=== PATIENT | female | born 2000 | race Two or more races ===

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

== ENCOUNTER 2019-04-24 03:14 | Outpatient (CLI) | payer OTHER ==
[~2019-04-24] VITALS: Ht 170.2 cm; Wt 60.5 kg
[2019-04-24 04:04] VITALS: BP 118/80
--- NOTE | 2019-04-24 11:49 | HPE ---
DATE OF ADMISSION: 04/24/2019 HISTORY: This is a 18-year-old 2, para 0, abortia 1, last menstrual period (LMP) 08/15/2018, estimated date of confinement (EDC) 06/02/2019, at 34 and 4 weeks of gestation, lost her mucus plug. RISK FACTORS: She has anemia and a body mass index (BMI) of 18. PAST HISTORY: In 2011, had a gestational sac with spontaneous . No dilation and curettage (D C). LABORATORIES: A positive, HIV negative, hepatitis negative, rapid plasma reagin (RPR) negative, rubella immune. Varicella immune. Urine negative. Gonorrhea and chlamydia negative. One hour glucose was 121. On examination, no distress. Symphysis fundus height is 34, vertex occiput anterior (OA), category one strip. No contractions. No decelerations. Accelerations are noted. The cervix is fingertip posterior -3 vertex, not well applied. She has no vaginal bleeding or loss and there is nothing on the glove. Blood pressure 118/80, respirations 18, pulse 86, temperature 98.1. Urine is 10/10, pH 6 and negative. In summary, we have a 34+ weeks of gestation, lost her mucus plug. Maintain appointment 05/06/2019. Discharged with instructions regarding kick chart, premature rupture of membranes, bleeding and contractions. All questions were answered. A 20 minute discussion. The patient discharged undelivered to follow up with her appointment.
== END 2019-04-24 04:30 | disposition home or self-care (01) ==
LOC: M LDO 03:14
PROVIDERS: ATTEND Obstetrics & Gynecology
DX: O26.893 Other specified pregnancy related conditions, third trimester (principal); Z3A.34 34 weeks gestation of pregnancy
CPT/HCPCS: 59025; G0378; G0463

== ENCOUNTER 2019-05-17 13:22 | Outpatient (CLI) | payer OTHER ==
[~2019-05-17] VITALS: Ht 170.2 cm; Wt 62.8 kg
[2019-05-17 13:48] VITALS: BP 135/77
[2019-05-17] MEDS ORDERED: IRON325T9 PO (13:52)
[2019-05-17] MEDS ORDERED: VITA250T4 PO (13:52)
[2019-05-17] MEDS ORDERED: PREN1CHW6 PO (13:52)
--- NOTE | 2019-05-17 15:58 | IPNPDOC ---
Text Note Date of Service The patient was seen on 05/17/19. NOTE S: Candie is a 18yo at, 37+5wks, EDC [id number] by 1st trimester US. She presents to LND with c/o ROM yesterday at 0730; she states her fluid was mucous at first, and now has become watery. She does report intercourse two nights ago. She reports +FM, denies VB/CTX. Her is complicated by anemia; she reports taking iron/vitamin C as prescribed. GBS Negative O: VSS, afebrile FHR 130s, moderate variability, + accels, no decels CTX: none VE: 2.5/50/-3, posterior SSE: No pooling No ferning on slide SABRINA: 13.74 (4 quadrant) A: Primip, intact membranes, not in labor, SABRINA WNL, Category I FHT, reactive and reassuring P: Discharged home with ROM and Labor precautions. f/u Thursday, [id number], in clinic for routine SERENA or sooner PRN Vital Signs Date Time Temp Pulse Resp B/P (MAP) Pulse Ox O2 Delivery O2 Flow Rate FiO2 05/17/19 13:48 97.4 87 18 135/77 (96) VS,Fishbone, I+O VS, Fishbone, I+O Vital Signs Date Time Temp Pulse Resp B/P (MAP) Pulse Ox O2 Delivery O2 Flow Rate FiO2 05/17/19 13:48 97.4 87 18 135/77 (96) TIANNA HENRIQUEZ CNM May 17, 2019 15:58
== END 2019-05-17 14:37 | disposition home or self-care (01) ==
LOC: M LDO 13:22
PROVIDERS: ATTEND Registered Nurse Maternal Newborn
DX: O26.893 Other specified pregnancy related conditions, third trimester (principal); N89.8 Other specified noninflammatory disorders of vagina; Z3A.37 37 weeks gestation of pregnancy
CPT/HCPCS: 59025; 76815; G0378; G0463

== ENCOUNTER 2019-05-18 00:49 | Inpatient (IN) | payer OTHER ==
[2019-05-18] VITALS (8 sets, daily range): BP systolic 112–139; BP diastolic 66–87
[~2019-05-18] VITALS: Ht 170.2 cm; Wt 63.6 kg
[~2019-05-18 00:49] MED LIST: IRON325T9 PO; PREN1CHW6 PO; VITA250T4 PO
[2019-05-18] MEDS ORDERED: LACTATED RINGER'S 1000 ML IV STA (01:55)
[2019-05-18] MEDS ORDERED: LR 1,000 ML IV SCH (01:55)
[2019-05-18] MEDS ORDERED: PROMETHAZINE INJ 25 MG/ML VIAL (J2550) IV ONE (02:00)
[2019-05-18] MEDS ORDERED: BUTORPHANOL 2 MG/ML INJ (J0595) IV PRN (02:00)
--- NOTE | 2019-05-18 02:09 | HPEPDOC ---
Obstetrical History & Physical General Date of Admission May 18, 2019 at 01:55 History of Present Illness Candie is a 18yo with SIUP at 37w6d by 7wk u/s presenting tonight with heavy vaginal bleeding after intercourse. states it "looked like a massacre". Patient states it was 2x heavier than normal heavy period bleeding. She was seen yesterday for labor check and was 2cm dilated. She is having ctx and they are mild/moderate. Feels good movement. No loss of fluid other than bleeding. No f/c/n/v/cough/SOB. Chief Complaint: Contractions, term, Vaginal Bleeding Information Provided By: Patient Care Care: Good Care Dating Final EDC: Jun 02, 2019 Final EDC by: 1st trimester (US) Antepartum Course Diagnos(e)s Starting BMI 18, anemia on iron/vit C Height (inches): 67 Pre- weight (lbs.): 115 Admission Weight (lbs.): 137 Change in Weight (lbs.): 22 Past Medical History Past Obstetrical History : Past Obstetrical History: Primgravida (early sab in 2017 with no interventi ons) V[employer]ER History: No pertinent history Past Medical History Medical History benign Surgical History: Other (oral surgery) Family History Significant Family History: No pertinent family hx Social History Marital Status: Family situation: Spouse/partner home Psychosocial History: No pertinent psych hx * Smoker: non-smoker Alcohol: Denies Imunizations Tdap status: current Influenza Status: declined Allergies Coded Allergies: No Known Allergies (Unverified , 05/18/19) Medications Scheduled Ascorbic Acid (Vitamin C) 250 Mg Tablet, 250 MG PO TID Ferrous Sulfate (Iron) 325 Mg Tablet, 1 TAB PO TID Vit37/Iron/Folic Acid (Prenata Chewable Tablet) 1 Each Tab.chew, 1 TAB PO DAILY Physical Examination Physical Examination GENERAL: Alert and oriented times three. ABDOMEN: Gravid and non-tender to touch. FETUS: Is vertex (VTX) by sterile vaginal examination (SVE) EXTREMITIES: No edema of BLE First jane-pad saturated with blood, then second was just barely coated with scant blood Vital Signs/I&O Vital Signs Date Time Temp Pulse Resp B/P (MAP) Pulse Ox O2 Delivery O2 Flow Rate FiO2 05/18/19 01:17 97.8 86 129/83 (98) Pertinent Laboratoy Data Blood Type: A+ RBC Antibody Screen: Negative HIV: Negative Hepatitis B: Negative Hepatitis C: Unknown Rapid Plasma Reagin: Nonreactive Rubella: Immune Varicella: Immune Chlamydia/Gonorrhea: Negative Group B Streptococcus: Negative Glucose Tolerance Test: 111 Anatomy Ultrasound Ultrasound Date: Jan 10, 2019 Placenta Location: Posterior Normal Anatomy: Yes Placenta Previa: No Steroid Therapy Steroid Therapy: No Vaginal Examination Dilation: 4 cm Effacement: 80% Station: -2 Cervical Consistency: Soft Cervical Position: Anterior Presentation: Cephalic presentation Assessment Heart Rate (FHR): 130 Variability: Moderate Accelerations: Positive Decelerations: None Tocometer Contractions: Yes Frequency: regular, every 2-5 min. Duration: greater than 60 seconds Strength: palpated as moderate Assessment/Plan Assessment Candie is a 18yo with SIUP at 37w6d by 7wk u/s with vaginal bleeding after intercourse that is likely related to early labor since SCE is 4/80/-2 with regular ctx q2-3min. Cat I FHRT. Bleeding has essentially ceased since presentation. Cephalic by SCE. GBS negative. Vitals wnl, benign exam. PMhx and course significant for: starting BMI 18, anemia on iron/vit C Plan Admit and orient. Counseled and consented Diet: clear liquids Group B Streptococcus (GBS) negative Labs and intravenous (IV) per unit protocol. Discussed since she is not 39wk or >, cannot augment at this point and she must progress on her own. She is understanding. Lactated Ringers (LR): Bolus 500 mL, then at 125 mL/hr. Anticipate normal spontaneous delivery () Candidate for epidural in active labor, stadol/phenergan IV in latent labor MD Yenifer Wesley Katrina D MD May 18, 2019 02:09
[2019-05-18 02:46] LABS: BASO % 0.2 % (0.0-1.0); EOS % 0.3 % (0.0-3.0); HEMATOCRIT 28.3 % (36.0-47.0); HEMOGLOBIN 9.3 g/dl (12.0-15.5); LYMPH # 1.6 10^3/uL (1.5-5.0); LYMPH % 13.9 % (24.0-44.0); MEAN CORPUSCULAR HEMOGLOBIN 27.6 pg (27.0-33.0); MEAN CORPUSCULAR HGB CONC 32.9 g/dl (32.0-36.5); MONO # 0.8 10^3/uL (0.0-0.8); MONO % 6.7 % (0.0-5.0); NEUTROPHILS # 8.8 10^3/uL (1.5-8.5); NEUTROPHILS % 78.3 % (36.0-66.0); PLATELET COUNT, AUTOMATED 227 10^3/uL (150-450); RED BLOOD COUNT 3.37 10^6/uL (4.00-5.40); WHITE BLOOD COUNT 11.3 10^3/uL (4.0-10.0)
[2019-05-18] MEDS ORDERED: OXYTOCIN 30 UNITS IN 0.9% NaCl 500ML IV BAG (J2590) As Ordered ONE (04:26)
--- NOTE | 2019-05-18 05:06 | DNPDOC ---
[facility] Delivery Note Delivery Note DATE OF DELIVERY: 05/18/2019 PREDELIVERY DIAGNOSIS: 37w6d gestation and labor. POST DELIVERY DIAGNOSIS: Delivered. PROCEDURE: Spontaneous vaginal delivery ACOUSTICAL CARPENTER: Dr. Libertad Street MD ANESTHESIA: IV stadol/phenergan ESTIMATED BLOOD LOSS: 300 mL. FINDINGS: 6 pound 5 ounce (2860g) female , Score 9/9 DELIVERY SUMMARY: Candie is a 18yo [id number] s/p uncomplicated at 37w6d on 18 May 2019 at 0438 after presenting in active labor. She was 4cm on admission, received stadol for pain, had SROM with clear fluid, and rapidly progressed to C/C/+2 at which point she began pushing. 's head delivered OA, restituted ANALI. Left anterior shoulder delivered followed by posterior shoulder and corpus. Infant had spontaneous cry, vigorous, apgars 9/9, nose and mouth suctioned with bulb suction. Cord clamped x2 and cut by FOB. With uterine massage and traction on the cord, placenta delivered spontaneously and intact with 3 vessel centrally inserted cord. Bimanual massage performed and IV pitocin given per protocol, fundus then firm at u-2cm and minimal bleeding noted. Inspection of perineum and vagina revealed small left labial laceration repaired with a single figure of 8 using 4-0 vicryl suture with excellent reapproximation and complete hemostasis. All counts correct x2. Mom and infant doing well when I left the room. MD Yenifer Wesley Katrina D MD May 18, 2019 05:06
[2019-05-18] MEDS ORDERED: OXYTOCIN DRIP 30 UNITS in IV 1 EA IV SCH (05:07)
[2019-05-18] MEDS ORDERED: RHOGAM 300 MCG (1500 IU) INJ (J2790) IM SCH (05:15)
[2019-05-18] MEDS ORDERED: DOCUSATE SODIUM 100 MG CAP PO PRN (05:15)
[2019-05-18] MEDS ORDERED: MEASLES,MUMPS,RUBELLA VACCINE INJ (MMR-II) (90707) SC SCH (05:15)
[2019-05-18] MEDS ORDERED: ACETAMINOPHEN 500 MG TAB PO PRN (05:15)
[2019-05-18] MEDS ORDERED: ACETAMINOPHEN TAB 650MG DOSE (2X325MG) PO PRN (05:15)
[2019-05-18] MEDS ORDERED: DIBUCAINE 1% OINTMENT 30GM TOP PRN (05:15)
[2019-05-18] MEDS: PRENATAL VITAMINS CHEWABLE TABLET PO SCH (08:46)
[2019-05-18] MEDS ORDERED: LIDOCAINE 1% MDV 20ML VIAL As Ordered ONE (23:52)
[2019-05-19 06:00] VITALS: BP 113/68
--- NOTE | 2019-05-19 08:39 | IPNPDOC ---
Progress Note Date of Service: May 19, 2019 Day#: 1 Progress Note SUBJECT: Patient is a 18 yo s/p , PPD #1. Today without concerns. She has been ambulating, voiding spontaneously without issue and tolerating regular diet. Breast feeding without issue. Reports lochia is light. plans on ocp for contraceptives. OBJECTIVE: VITAL SIGNS: Within normal limits, afebrile. Alert and oriented times three. Abdomen: Fundus firm at U-2. Soft, NTTP. LE: no edema/erythema/tenderness A/P patient is ppd #1, doing well. encourage BF. contraceptive counseling. norqd prescription placed at pharmacy. routine ppc. d/c today. Le, DO VS, I&O, 24H, Fishbone Vital Signs/I&O Vital Signs Date Time Temp Pulse Resp B/P (MAP) Pulse Ox O2 Delivery O2 Flow Rate FiO2 05/19/19 06:00 97.8 78 18 113/68 (83) 97 Room Air I&O- Last 24 Hours up to 6 AM 05/19/19 05:59 Output Total 500 ml Balance -500 ml ZAYNAB CARCAMO DO May 19, 2019 08:38
[2019-05-19] MEDS: PRENATAL VITAMINS CHEWABLE TABLET PO SCH (08:43)
[2019-05-19 18:17] VITALS: BP 114/61
[2019-05-20 06:18] VITALS: BP 116/67
--- NOTE | 2019-05-20 07:29 | IPNPDOC ---
Progress Note Date of Service: May 20, 2019 Day#: 2 Progress Note PPD 2 SUBJECT: Candie is a 18yo [id number] s/p uncomplicated at 37w6d on 18 May 2019 at 0438 after presenting in active labor, doing well PPD 2. She has been ambulating, voiding spontaneously without issue and tolerating regular diet. Breast feeding without issue. Reports lochia is like a normal period. No f/c/n/v/CP/SOB. OBJECTIVE: VITAL SIGNS: Within normal limits, afebrile. Alert and oriented times three. Abdomen: Fundus firm at U-2. Soft, NTTP. Extremities: no pain with palpation of calves ASSESSMENT: Candie is a 18yo [id number] s/p uncomplicated at 37w6d on 18 May 2019 at 0438 after presenting in active labor, doing well PPD 2. Vitals within normal limits, afebrile, hemodynamically stable with no evidence of infection. PLAN: 1. Discharge to home today. 2. Tylenol for pain. 3. Encourage breast feeding and ambulation. 4. Minipill for contraception for now 5. Routine PP visit in 6 weeks in clinic. 6. Discussed return precautions at length. Dr. Libertad Street MD VS, I&O, 24H, Fishbone Vital Signs/I&O Vital Signs Date Time Temp Pulse Resp B/P (MAP) Pulse Ox O2 Delivery O2 Flow Rate FiO2 05/20/19 06:18 97.6 89 14 116/67 (83) 05/19/19 06:[address] MD May 20, 2019 07:29
[2019-05-20] MEDS ORDERED: ACET-683 PO (07:37)
[2019-05-20] MEDS ORDERED: DIBU10OI TOP (07:37)
[2019-05-20] MEDS: PRENATAL VITAMINS CHEWABLE TABLET PO SCH (07:39)
--- NOTE | 2019-05-20 07:39 | DS.PDOC ---
Discharge Summary General Date of Admission May 18, 2019 at 01:55 Date of Discharge May 20, 2019 Discharge Summary PROCEDURES PERFORMED DURING STAY: spontaneous vaginal delivery ADMITTING DIAGNOSES: 1. active labor at term. DISCHARGE DIAGNOSES: 1. active labor at term, delivered COMPLICATIONS/CHIEF COMPLAINT: Labor Check. HISTORY OF PRESENT ILLNESS/HOSPITAL COURSE: Candie is a 18yo [id number] s/p uncomplicated at 37w6d on 18 May 2019 at 0438 after presenting in active labor, doing well PPD 2. She has had a benign course. At time of discharge vitals were within normal limits, afebrile, hemodynamically stable with no evidence of infection. DISCHARGE MEDICATIONS: Please see below. ALLERGIES: Please see below. PHYSICAL EXAMINATION ON DISCHARGE: VITAL SIGNS: Within normal limits, afebrile. Alert and oriented times three. Abdomen: Fundus firm at U-2. Soft, NTTP. Extremities: no pain with palpation of calves LABORATORY DATA: Please see below. ACTIVITY: vaginal rest 6 weeks and no heavy lifting DIET: regular DISPOSITION: home DISCHARGE PLAN/INSTRUCTIONS: 1. Discharge to home today. 2. Tylenol for pain. 3. Encourage breast feeding and ambulation. 4. Minipill for contraception for now 5. Routine PP visit in 6 weeks in clinic. 6. Discussed return precautions at length. DISCHARGE CONDITION: Stable TIME SPENT ON DISCHARGE: Greater than [address] MD Vital Signs/I&Os Vital Signs Date Time Temp Pulse Resp B/P (MAP) Pulse Ox O2 Delivery O2 Flow Rate FiO2 05/20/19 06:18 97.6 89 14 116/67 (83) 05/19/19 06:00 97 Room Air Discharge Medications Scheduled Ascorbic Acid (Vitamin C) 250 Mg Tablet, 250 MG PO TID, (Reported) Ferrous Sulfate (Iron) 325 Mg Tablet, 1 TAB PO TID, (Reported) Vit37/Iron/Folic Acid (Prenata Chewable Tablet) 1 Each Tab.chew, 1 TAB PO DAILY, (Reported) Scheduled PRN Acetaminophen (Acetaminophen) 500 Mg Tablet, 1,000 MG PO Q6HP PRN for PAIN LEVEL 6-10 Dibucaine (Dibucaine) 28 Gm Oint...g., 0 DOSE TOP Q4HP PRN for PAIN Allergies Coded Allergies: No Known Allergies (Unverified , 05/18/19) Libertad Street MD May 20, 2019 07:39
== END 2019-05-20 12:20 | disposition home or self-care (01) | DRG 807 ==
LOC: M LDO 00:49 → M LDI 01:55 → M OBS 12:45
PROVIDERS: ADMIT Obstetrics & Gynecology; ATTEND Obstetrics & Gynecology
PROC: 10E0XZZ Delivery of Products of Conception, External Approach (ICD-10-PCS; principal; 2019-05-18)
PROC: 0HQ9XZZ Repair Perineum Skin, External Approach (ICD-10-PCS; 2019-05-18)
DX: O62.3 Precipitate labor (principal); Z37.0 Single live birth; D64.9 Anemia, unspecified; O99.02 Anemia complicating childbirth; O70.0 First degree perineal laceration during delivery; Z3A.37 37 weeks gestation of pregnancy